=== PATIENT | male | born 1960 | race Caucasian/White ===

== ENCOUNTER 2020-07-04 10:35 | Emergency (ER) | payer SELFPAY ==
[2020-07-04] MEDS ORDERED: CEPHALEXIN 250 MG CAP ONE (11:35)
[2020-07-04] MEDS ORDERED: SMZ./TMP. 800/160 MG TABLET ONE (11:35)
[2020-07-04] MEDS ORDERED: LIDOCAINE 1% MPF 5 ML VIAL ONE (11:35)
[2020-07-04] MEDS ORDERED: HYDROCODONE/APAP 7.5/325 MG TAB ONE (11:36)
--- NOTE | 2020-07-04 12:37 | EDPHYS ---
Physician Documentation [facility] Name: Jonny Hunt Age: 60 yrs Sex: Male : 1960 Arrival Date: 07/04/2020 Time: 10:39 Bed 13 Private MD: ED Physician Palomo Bennett HPI: 07/04 11:31 This 60 yrs old Male presents to ER via Ambulatory with complaints of Insect kb Bite. 11:33 The patient presents with an abscess of the posterior aspect of right shoulder. kb Description: erythematous, fluctuant, hot, swollen. Onset: The symptoms/episode began/occurred 4 day(s) ago. Possible cause(s): unknown. Associated signs and symptoms: Pertinent positives: erythema, swelling, Pertinent negatives: fever. Modifying factors: the symptoms are alleviated by nothing, the symptoms are aggravated by walking, pressure, touching. Severity of symptoms: At their worst the symptoms were moderate, in the emergency department the symptoms are unchanged. The patient has not experienced similar symptoms in the past. The patient has not recently seen a physician. Historical: - Allergies: 10:54 No Known Allergies; ca1 - Home Meds: 10:54 None [Active]; ca1 - PMHx: 10:54 None; ca1 - PSHx: 10:54 None; ca1 - Immunization history:: Flu vaccine is not up to date. - Social history:: Smoking status: Patient reports the use of cigarette tobacco products, smokes one pack cigarettes per day. ROS: 11:34 Constitutional: Negative for fever, chills, and weight loss, Cardiovascular: Negative kb for chest pain, palpitations, and edema, Respiratory: Negative for shortness of breath, cough, wheezing, and pleuritic chest pain, Abdomen/GI: Negative for abdominal pain, nausea, vomiting, diarrhea, and constipation, MS/Extremity: Negative for injury and deformity, Neuro: Negative for headache, weakness, numbness, tingling, and seizure. 11:34 Skin: Positive for abscess. Exam: 11:33 Constitutional: This is a well developed, well nourished patient who is awake, alert, kb and in no acute distress. Head/Face: Normocephalic, atraumatic. MS/ Extremity: Pulses equal, no cyanosis. Neurovascular intact. Full, normal range of motion. Neuro: Awake and alert, GCS 15, oriented to person, place, time, and situation. Cranial nerves II-XII grossly intact. Motor strength 5/5 in all extremities. Sensory grossly intact. Cerebellar exam normal. Normal gait. 11:33 Skin: abscess, that is moderate sized, of the posterior aspect of right shoulder, with fluctuance, with induration, with surrounding cellulitis, that is moderate. Vital Signs: 10:52 BP 131 / 97; Pulse 78; Resp 16 S; Temp 97.3(TE); Pulse Ox 98% on R/A; Weight 97.52 kg ca1 (R); Height 6 ft. 1 in. (185.42 cm) (R); Pain 5/10; 10:52 Body Mass Index 28.37 (97.52 kg, 185.42 cm) ca1 Procedures: 16:31 I \T\ D: Incision and drainage was performed for an abscess of the right posterior aspect kb of right shoulder Prepped with Betadine, Anesthetized with 3 ml's 1% Lidocaine. Incised with #11 blade. Drained large amount purulent fluid. Cultures obtained. Abscess cavity explored. Packed with sterile gauze, Dressing: sterile 4x4 gauze, the patient tolerated the procedure well. MDM: 11:04 Patient medically screened. kb 11:32 Data reviewed: vital signs, nurses notes. Data interpreted: Pulse oximetry: on room air kb is 98 %. Interpretation: normal. Counseling: I had a detailed discussion with the patient and/or guardian regarding: the historical points, exam findings, and any diagnostic results supporting the discharge/admit diagnosis, the need for outpatient follow up, a family practitioner, to return to the emergency department if symptoms worsen or persist or if there are any questions or concerns that arise at home. 07/04 12:37 Order name: Wound Culture kb 07/04 11:11 Order name: I\T\D Setup; Complete Time: 11:25 kb Administered Medications: 11:25 Drug: KeFLEX 500 mg Route: PO; iw 11:35 Follow up: Response: No adverse reaction iw 11:26 Drug: [place] (7.5 mg-325 mg) 1 tabs Route: PO; iw 11:36 Follow up: Response: No adverse reaction iw 11:26 Drug: Bactrim (160 mg-800 mg (DS) 1 tablet Route: PO; iw 11:36 Follow up: Response: No adverse reaction iw Disposition: 16:08 Co-signature as Attending Physician, Palomo Bennett MD. rn Disposition: 07/04/20 12:36 Discharged to Home. Impression: Cutaneous abscess of right upper limb. - Condition is Stable. - Discharge Instructions: Skin Abscess, [place], Incision and Drainage, Care After. - Prescriptions for Keflex 500 mg Oral Capsule - take 1 capsule by ORAL route every 8 hours for 10 days; 30 capsule. Bactrim DS 800- 160 mg Oral Tablet - take 1 tablet by ORAL route every 12 hours for 10 days; 20 tablet. - Medication Reconciliation Form, Thank You Letter, Antibiotic Education, Prescription Opioid Use form. - Follow up: Emergency Department; When: As needed; Reason: Worsening of condition. Follow up: Private Physician; When: 2 - 3 days; Reason: Recheck today's complaints, Continuance of care, Re-evaluation by your physician. Signatures: Dispatcher [employer] EDMS Antonella Thomas, EMY-C [employer]-Winb Ariadna Delgado, RN RN Palomo Lovelace MD MD rn Ackennedy, Scarlett RN RN ca1 Corrections: (The following items were deleted from the chart) 11:36 11:34 Skin: Positive for kb kb 13:09 12:36 07/04/2020 12:36 Discharged to Home. Impression: Cutaneous abscess of right upper iw limb. Condition is Stable. Forms are Medication Reconciliation Form, Thank You Letter, Antibiotic Education, Prescription Opioid Use. Follow up: Emergency Department; When: As needed; Reason: Worsening of condition. Follow up: Private Physician; When: 2 - 3 days; Reason: Recheck today's complaints, Continuance of care, Re-evaluation by your physician. kb
--- NOTE | 2020-07-04 12:37 | ER ---
Nurse's Notes [facility] Name: Jonny Hunt Age: 60 yrs Sex: Male : 1960 Arrival Date: 07/04/2020 Time: 10:39 Bed 13 Private MD: Diagnosis: Cutaneous abscess of right upper limb Presentation: 07/04 10:52 Chief complaint: Patient states: Insect bite on the R shoulder, red, swollen, pus in ca1 the middle. Coronavirus screen: Client denies travel out of the [place] in the last 14 days. At this time, the client does not indicate any symptoms associated with coronavirus-19. Ebola Screen: Patient negative for fever greater than or equal to 101.5 degrees Fahrenheit, and additional compatible Ebola Virus Disease symptoms Patient denies exposure to infectious person. Patient denies travel to an Ebola-affected area in the 21 days before illness onset. No symptoms or risks identified at this time. Initial Sepsis Screen: Does the patient meet any 2 criteria? No. Patient's initial sepsis screen is negative. Does the patient have a suspected source of infection? No. Patient's initial sepsis screen is negative. Risk Assessment: Do you want to hurt yourself or someone else? Patient reports no desire to harm self or others. Onset of symptoms was July 01, 2020. 10:52 Method Of Arrival: Ambulatory ca1 10:52 Acuity: AXEL 4 ca1 Triage Assessment: 11:00 General: Appears in no apparent distress. Behavior is calm, cooperative. iw Historical: - Allergies: 10:54 No Known Allergies; ca1 - Home Meds: 10:54 None [Active]; ca1 - PMHx: 10:54 None; ca1 - PSHx: 10:54 None; ca1 - Immunization history:: Flu vaccine is not up to date. - Social history:: Smoking status: Patient reports the use of cigarette tobacco products, smokes one pack cigarettes per day. Screenin:08 Abuse screen: Denies threats or abuse. Denies injuries from another. Nutritional iw screening: No deficits noted. Tuberculosis screening: No symptoms or risk factors identified. Fall Risk None identified. Assessment: 11:00 General: Appears in no apparent distress. Behavior is calm, cooperative. iw 11:00 Pain: Complains of pain in posterior aspect of right shoulder. Neuro: Level of iw Consciousness is awake, alert, obeys commands, Oriented to person, place, time, situation, Moves all extremities. Cardiovascular: Patient's skin is warm and dry. Respiratory: Respiratory effort is even, unlabored, Respiratory pattern is regular, symmetrical. Derm: Skin is intact, Skin is pink, warm \T\ dry. Abscess located on posterior aspect of right shoulder is half dollar sized. Musculoskeletal: Range of motion: intact in all extremities. Vital Signs: 10:52 BP 131 / 97; Pulse 78; Resp 16 S; Temp 97.3(TE); Pulse Ox 98% on R/A; Weight 97.52 kg ca1 (R); Height 6 ft. 1 in. (185.42 cm) (R); Pain 5/10; 10:52 Body Mass Index 28.37 (97.52 kg, 185.42 cm) ca1 ED Course: 10:39 Patient arrived in ED. ds1 10:54 Triage completed. ca1 10:54 Arm band placed on right wrist. ca1 11:00 Patient has correct armband on for positive identification. iw 11:04 [facility]C [facility] kb 11:04 Palomo Bennett MD is Attending Physician. kb 11:09 Ariadna Delgado, NEDRA is Primary Nurse. iw 12:40 Assist provider with I \T\ D: of an abscess on right shoulder Set up I\T\D tray. Performed iw by Antonella GALLARDO Culture sent to lab. Wound packed. plain packing Dressing with 4X4s, tape Patient tolerated well. Patient did not have IV access during this emergency room visit. Administered Medications: 11:25 Drug: KeFLEX 500 mg Route: PO; iw 11:35 Follow up: Response: No adverse reaction iw 11:26 Drug: [place] (7.5 mg-325 mg) 1 tabs Route: PO; iw 11:36 Follow up: Response: No adverse reaction iw 11:26 Drug: Bactrim (160 mg-800 mg (DS) 1 tablet Route: PO; iw 11:36 Follow up: Response: No adverse reaction iw Outcome: 12:36 Discharge ordered by . kb 13:08 Discharged to home ambulatory. iw 13:08 Condition: good 13:08 Discharge instructions given to patient, Instructed on discharge instructions, follow up and referral plans. medication usage, Demonstrated understanding of instructions, follow-up care, medications, wound care, Prescriptions given X 2. 13:09 Patient left the ED. iw Addendum: 07/09/2020 07:13 Addendum: Culture Results: Positive wound culture. No further action required. Bacteria e b sensitive to prescribed antibiotic. Signatures: Antonella Thomas, [employer]DER [employer]KER-C [employer]DER [employer]KER-Ckb Eveline Jones ds1 Ariadna Delgado, NEDRA RN iw Arelis Montez Cheryl RN RN ca1 Corrections: (The following items were deleted from the chart) 07/05 07:49 07:47 General: Appears in no apparent distress. iw iw 07:51 03 13:08 Discharge instructions given to patient, Instructed on discharge iw instructions, follow up and referral plans. medication usage, Demonstrated understanding of instructions, follow-up care, medications, wound care, Prescriptions given X 3, iw
[2020-07-04 14:38] VITALS: BP 131/97; TEMP 97.3; O2SAT 98
== END 2020-07-04 13:09 | disposition home or self-care (01) ==
LOC: ER 10:35
PROC: 0J9D0ZZ Drainage of Right Upper Arm Subcutaneous Tissue and Fascia, Open Approach (ICD-10-PCS; principal; 2020-07-04)
DX: L02.413 Cutaneous abscess of right upper limb (principal); F17.210 Nicotine dependence, cigarettes, uncomplicated
CPT/HCPCS: 87070; 87077; 87186; 87205; 99284

== ENCOUNTER 2021-01-22 09:00 | Emergency (ER) | payer SELFPAY ==
[2021-01-22 09:20] LABS: Absolute Lymphocytes (CBC) 2.5 K/uL (0.7-4.9); Basophils % 0.7 % (0-1.3); Hematocrit 49.3 % (39.6-49.0); Lymphocytes % 22.1 % (15.3-44.8); MPV 8.1 fL (7.6-11.3); RBC Red Blood Cell Count 5.27 M/uL (4.33-5.43)
[2021-01-22] MEDS ORDERED: ONDANSETRON 4 MG/2 ML VIAL ONE (09:28)
[2021-01-22] MEDS ORDERED: KETOROLAC 30 MG/ML INJ ONE (09:28)
[2021-01-22] MEDS ORDERED: NA CHLORIDE 0.9% 1,000 ML ONE ×2 (09:28→09:59)
[2021-01-22] MEDS ORDERED: MORPHINE 4 MG/ML SYR ONE (09:28)
[2021-01-22 09:37] LABS: Albumin 3.9 g/dL (3.4-5.0); Bilirubin Direct 0.2 mg/dL (0-0.2); Bilirubin Total 0.8 mg/dL (0.2-1.0); Protein, Total 7.7 g/dL (6.4-8.2)
--- NOTE | 2021-01-22 09:52 | RAD REPORT ---
EXAM DESCRIPTION: CT - Stone Protocol - 01/22/2021 9:27 am CLINICAL HISTORY: Abdominal pain. TECHNIQUE: Computed axial tomography of the abdomen pelvis was obtained without oral or IV contrast. Lack of IV and oral contrast limits evaluation of solid organs, bowel, and vessels. Coronal reformat zeeshan images were obtained and reviewed. All CT scans are performed using dose optimization technique as appropriate and may include automated exposure control or mA/KV adjustment according to patient size. FINDINGS: Mild left hydronephrosis. 3.1 centimeter parapelvic cysts left kidney. 1 millimeter calcul us distal left ureter. A bladder calculus is not present. No right renal calculus. Small parapelvic c yst right kidney. Small to moderate hiatal hernia The liver, spleen, pancreas and adrenals appear grossly normal There is no evidence of diverticulitis. The appendix appears normal Infrarenal abdominal aortic aneurysm AP diameter 4.9 centimeters. Small right and moderate left inguinal hernias contain fat. Small umbilical hernia. Gastric diverticu lum IMPRESSION: 1 millimeter calculus distal left ureter with mild left hydronephrosis 4.9 centimeter infrarenal abdominal aortic aneurysm
[2021-01-22] MEDS ORDERED: PROMETHAZINE INJ 25 MG/ML AMP ONE ×2 (09:58→12:04)
[2021-01-22] MEDS ORDERED: HYDROMORPHONE HCL 1 MG/ML INJ ONE ×2 (09:59→12:04)
[2021-01-22] MEDS ORDERED: TAMSULOSIN 0.4 MG SR CAP ONE (10:16)
[2021-01-22] MEDS ORDERED: CEFTRIAXONE/SWI 1gm 1 GM/10 ML SYR ONE (10:25)
--- NOTE | 2021-01-22 10:46 | ER ---
Nurse's Notes [facility] Name: Jonny Hunt Age: 60 yrs Sex: Male : 1960 Arrival Date: 01/22/2021 Time: 09:01 Bed 6 Private MD: Diagnosis: Hydronephrosis with renal and ureteral calculous obstruction;Abdominal aortic aneurysm, without rupture-4.9 cm infrarenal;Essential (primary) hypertension;Tobacco abuse counseling;Tobacco use Presentation: 01/22 09:07 Chief complaint: Patient states: LLQ pain radiating to back. Woke pt up 2 hours ago. ch5 denies Hx of kidney stone. Coronavirus screen: Vaccine status: Patient reports receiving the 2nd dose of the covid vaccine. Client presents with at least one sign or symptom that may indicate coronavirus-19. Ebola Screen: Patient negative for fever greater than or equal to 101.5 degrees Fahrenheit, and additional compatible Ebola Virus Disease symptoms Patient denies exposure to infectious person. Patient denies travel to an Ebola-affected area in the 21 days before illness onset. Initial Sepsis Screen: Does the patient meet any 2 criteria? No. Patient's initial sepsis screen is negative. Does the patient have a suspected source of infection? No. Patient's initial sepsis screen is negative. Risk Assessment: Do you want to hurt yourself or someone else? Patient reports no desire to harm self or others. Onset of symptoms was January 22, 2021 at 07:00. 09:07 Method Of Arrival: EMS: [facility] 09:07 Acuity: AXEL 3 ch5 Triage Assessment: 09:11 General: Appears uncomfortable, Behavior is cooperative, restless. Pain: Complains of ch5 pain in abdomen. 09:12 Pain: Complains of pain in left lower quadrant Pain radiates to back. GI: Abdomen is Pt ch5 is actively vomiting Reports lower abdominal pain, nausea, vomiting. Derm: Skin is diaphoretic. Historical: - Allergies: 09:11 No Known Allergies; ch5 - Home Meds: 09:11 None [Active]; ch5 - PMHx: 09:11 None; ch5 - Immunization history:: Client reports receiving the 2nd dose of the Covid vaccine, September. - Social history:: Smoking status: Patient reports the use of cigarette tobacco products, smokes one pack cigarettes per day. - Family history:: not pertinent. Screenin:00 Abuse screen: Denies threats or abuse. Denies injuries from another. Nutritional 5 screening: No deficits noted. Tuberculosis screening: No symptoms or risk factors identified. Fall Risk None identified. Assessment: 09:13 Reassessment: No changes from previously documented assessment. GI: Reports lower ch5 abdominal pain, nausea, vomiting. Vital Signs: 09:00 BP 151 / 100; Pulse 61; Resp 20; Pulse Ox 98% ; Pain 10/10; ch5 09:07 BP 177 / 96; Pulse 61; Resp 18; Temp 97.5; Pulse Ox 94% on R/A; Weight 92.99 kg; Height ch5 6 ft. 1 in. (185.42 cm); Pain 10/10; 10:46 BP 135 / 75; Pulse 62; Resp 17 S; Pulse Ox 96% on R/A; jd3 11:16 BP 141 / 69; Pulse 53; Resp 16; Pulse Ox 94% on R/A; ch5 11:36 BP 146 / 75; Pulse 62; Resp 18; Pulse Ox 97% ; Pain 0/10; ch5 12:40 BP 141 / 69; Pulse 63; Resp 16; Pulse Ox 93% on R/A; Pain 0/10; ch5 09:07 Body Mass Index 27.05 (92.99 kg, 185.42 cm) 5 ED Course: 09:00 No provider procedures requiring assistance completed. 5 09:00 Bed in low position. Call light in reach. Side rails up X2. 5 09:01 Patient arrived in ED. am2 09:01 Bandar Miller MD is Attending Physician. [facility] 09:03 Inserted saline lock: 20 gauge in right antecubital area, using aseptic technique. es2 Blood collected. 09:07 Kev Banda, NEDRA is Primary Nurse. 5 09:10 Triage completed. 5 09:13 Arm band placed on right wrist. 5 09:26 CT Stone Protocol In Process Unspecified. EDMS 10:45 Pedro Luna MD is Referral Physician. radha 10:45 Dawson Freeman MD is Referral Physician. radha 12:39 intact. 5 Administered Medications: 09:12 Drug: NS 0.9% 1000 ml Route: IV; Rate: 1 bolus; Site: right antecubital; es2 11:30 Follow up: IV Status: Completed infusion ch5 09:12 Drug: morphine 4 mg Route: IVP; Site: right antecubital; es2 11:27 Follow up: Response: Pain is decreased ch5 09:12 Drug: Zofran (Ondansetron) 4 mg Route: IVP; Site: right antecubital; es2 11:27 Follow up: Response: Nausea is decreased ch5 09:12 Drug: Ketorolac 30 mg Route: IVP; Site: right antecubital; es2 11:27 Follow up: Response: Pain is decreased ch5 09:41 Drug: NS 0.9% 1000 ml Route: IV; Rate: 1 bolus; Site: right antecubital; ch5 11:29 Follow up: IV Status: Completed infusion ch5 09:41 Drug: Dilaudid (HYDROmorphone) 1 mg Route: IVP; Site: right antecubital; ch5 11:28 Follow up: Response: Pain is decreased ch5 09:42 Drug: Phenergan (promethazine) 12.5 mg Route: IVP; Site: right antecubital; ch5 11:28 Follow up: Response: Nausea is decreased ch5 09:56 Drug: Flomax (tamsulosin) 0.4 mg Route: PO; ch5 11:28 Follow up: Response: No adverse reaction ch5 10:06 Drug: Rocephin (cefTRIAXone) 1 grams Route: IV; Rate: per protocol; Site: right jd3 antecubital; 10:54 Not Given (Other Intervention Used): ToPROL XL (metoprolol SUCCINATE) 25 mg PO once jd3 10:55 Drug: Metoprolol TARTRATE 25 mg Route: PO; jd3 11:28 Follow up: Response: No adverse reaction ch5 11:45 Drug: Dilaudid (HYDROmorphone) 1 mg Route: IVP; Site: right antecubital; ch5 12:38 Follow up: Response: Pain is decreased ch5 11:45 Drug: Phenergan (promethazine) 12.5 mg Route: IVP; Site: right antecubital; ch5 12:38 Follow up: Response: Nausea is decreased ch5 Outcome: 10:45 Discharge ordered by . radha 12:39 Discharged to home ambulatory, with family. ch5 12:39 Condition: improved 12:39 Discharge instructions given to patient, Prescriptions given X 4. 13:17 Patient left the ED. ch5 Signatures: Dispatcher [employer] Bandar Blakely MD MD cha Moreno, Amanda am2 Juan C Vidal, RN RN jKve Alvarado RN RN ch5 Arelis Mark 2 Corrections: (The following items were deleted from the chart) 09:11 09:10 Inserted saline lock: 20 gauge in right antecubital area, using aseptic es2 technique. Blood collected. es2 11:45 11:36 Discharged to home ch5 ch5 11:45 11:36 Condition: improved ch5 ch5 11:45 11:36 Discharge instructions given to patient, family, Prescriptions given X 4, ch5 ch5
--- NOTE | 2021-01-22 10:46 | EDPHYS ---
Physician Documentation [facility] Name: Jonny Hunt Age: 60 yrs Sex: Male : 1960 Arrival Date: 01/22/2021 Time: 09:01 Bed 6 Private MD: ED Physician Bandar Miller HPI: 01/22 09:23 This 60 yrs old Male presents to ER via EMS with complaints of Abdominal Pain.radha 09:23 The patient presents with abdominal pain in the left upper quadrant, in the left lower radha quadrant. Onset: The symptoms/episode began/occurred this morning. The patient complains of pain in the left low back and left mid back. The pain radiates to the left low back and left mid back. Onset: The symptoms/episode began/occurred this morning. Modifying factors: The symptoms are alleviated by nothing. the symptoms are aggravated by nothing. Associated signs and symptoms: Pertinent positives: nausea, vomiting. The symptoms radiate to the left flank. Associated signs and symptoms: Pertinent positives: nausea, vomiting. The symptoms are described as crampy, sharp. Historical: - Allergies: 09:11 No Known Allergies; ch5 - Home Meds: 09:11 None [Active]; ch5 - PMHx: 09:11 None; ch5 - Immunization history:: Client reports receiving the 2nd dose of the Covid vaccine, September. - Social history:: Smoking status: Patient reports the use of cigarette tobacco products, smokes one pack cigarettes per day. - Family history:: not pertinent. ROS: 09:23 Constitutional: Negative for fever, chills, and weight loss, Eyes: Negative for injury, radha pain, redness, and discharge, ENT: Negative for injury, pain, and discharge, Neck: Negative for injury, pain, and swelling, Cardiovascular: Negative for chest pain, palpitations, and edema, Respiratory: Negative for shortness of breath, cough, wheezing, and pleuritic chest pain, : Negative for injury, bleeding, discharge, and swelling, MS/Extremity: Negative for injury and deformity, Skin: Negative for injury, rash, and discoloration, Neuro: Negative for headache, weakness, numbness, tingling, and seizure, Psych: Negative for depression, anxiety, suicide ideation, homicidal ideation, and hallucinations, Allergy/Immunology: Negative for hives, rash, and allergies, Endocrine: Negative for neck swelling, polydipsia, polyuria, polyphagia, and marked weight changes, Hematologic/Lymphatic: Negative for swollen nodes, abnormal bleeding, and unusual bruising. 09:23 Abdomen/GI: Positive for abdominal pain, of the anterior aspect of left lateral abdomen and posterior aspect of left lateral abdomen. Exam: 09:23 Constitutional: This is a well developed, well nourished patient who is awake, alert, radha and in no acute distress. Head/Face: Normocephalic, atraumatic. Eyes: Pupils equal round and reactive to light, extra-ocular motions intact. Lids and lashes normal. Conjunctiva and sclera are non-icteric and not injected. Cornea within normal limits. Periorbital areas with no swelling, redness, or edema. ENT: Nares patent. No nasal discharge, no septal abnormalities noted. Tympanic membranes are normal and external auditory canals are clear. Oropharynx with no redness, swelling, or masses, exudates, or evidence of obstruction, uvula midline. Mucous membranes moist. Neck: Trachea midline, no thyromegaly or masses palpated, and no cervical lymphadenopathy. Supple, full range of motion without nuchal rigidity, or vertebral point tenderness. No Meningismus. Chest/axilla: Normal chest wall appearance and motion. Nontender with no deformity. No lesions are appreciated. Cardiovascular: Regular rate and rhythm with a normal S1 and S2. No gallops, murmurs, or rubs. Normal PMI, no JVD. No pulse deficits. Respiratory: Lungs have equal breath sounds bilaterally, clear to auscultation and percussion. No rales, rhonchi or wheezes noted. No increased work of breathing, no retractions or nasal flaring. Male : Normal genitalia with no discharge or lesions. Skin: Warm, dry with normal turgor. Normal color with no rashes, no lesions, and no evidence of cellulitis. MS/ Extremity: Pulses equal, no cyanosis. Neurovascular intact. Full, normal range of motion. Neuro: Awake and alert, GCS 15, oriented to person, place, time, and situation. Cranial nerves II-XII grossly intact. Motor strength 5/5 in all extremities. Sensory grossly intact. Cerebellar exam normal. Normal gait. Psych: Awake, alert, with orientation to person, place and time. Behavior, mood, and affect are within normal limits. 09:23 Abdomen/GI: Inspection: abdomen appears normal, Bowel sounds: normal, Palpation: moderate abdominal tenderness, in the anterior aspect of left lateral abdomen, posterior aspect of left lateral abdomen, left upper quadrant and left lower quadrant, Liver: no appreciated palpable abnormalities, Hernia: not appreciated. Vital Signs: 09:00 BP 151 / 100; Pulse 61; Resp 20; Pulse Ox 98% ; Pain 10/10; ch5 09:07 BP 177 / 96; Pulse 61; Resp 18; Temp 97.5; Pulse Ox 94% on R/A; Weight 92.99 kg; Height ch5 6 ft. 1 in. (185.42 cm); Pain 10/10; 10:46 BP 135 / 75; Pulse 62; Resp 17 S; Pulse Ox 96% on R/A; jd3 11:16 BP 141 / 69; Pulse 53; Resp 16; Pulse Ox 94% on R/A; ch5 11:36 BP 146 / 75; Pulse 62; Resp 18; Pulse Ox 97% ; Pain 0/10; ch5 12:40 BP 141 / 69; Pulse 63; Resp 16; Pulse Ox 93% on R/A; Pain 0/10; ch5 09:07 Body Mass Index 27.05 (92.99 kg, 185.42 cm) 5 MDM: 09:01 Patient medically screened. [facility] 09:27 Differential diagnosis: nephrolithiasis, pyelonephritis, UTI, testicular torsion, radha diverticulitis, pancreatitis, diverticulitis, non-specific abd pain, pancreatitis, Pyelonephritis, Ureterolithiasis, urinary tract infection. Data reviewed: vital signs, nurses notes, lab test result(s), radiologic studies, CT scan. Data interpreted: color television console monitor: rate is 61 beats/min, rhythm is regular, Pulse oximetry: on room air is 94 %. Test interpretation: by ED physician or midlevel provider:. Counseling: I had a detailed discussion with the patient and/or guardian regarding: the historical points, exam findings, and any diagnostic results supporting the discharge/admit diagnosis, lab results. 01/22 09:05 Order name: Basic Metabolic Panel; Complete Time: 09:53 radha 01/22 09:05 Order name: CBC with Diff; Complete Time: :53 radha 01/22 09:05 Order name: Hepatic Function; Complete Time: 09:53 [facility] 01/22 09:05 Order name: Lipase; Complete Time: : [facility] 01/22 09:05 Order name: CT Stone Protocol; Complete Time: [facility] 01/22 09:05 Order name: IV Saline Lock; Complete Time: : [facility] 01/22 09:05 Order name: Labs collected and sent; Complete Time: 09:13 [facility] Administered Medications: 09:12 Drug: NS 0.9% 1000 ml Route: IV; Rate: 1 bolus; Site: right antecubital; es2 11:30 Follow up: IV Status: Completed infusion ch5 09:12 Drug: morphine 4 mg Route: IVP; Site: right antecubital; es2 11:27 Follow up: Response: Pain is decreased ch5 09:12 Drug: Zofran (Ondansetron) 4 mg Route: IVP; Site: right antecubital; es2 11:27 Follow up: Response: Nausea is decreased ch5 09:12 Drug: Ketorolac 30 mg Route: IVP; Site: right antecubital; es2 11:27 Follow up: Response: Pain is decreased ch5 09:41 Drug: NS 0.9% 1000 ml Route: IV; Rate: 1 bolus; Site: right antecubital; ch5 11:29 Follow up: IV Status: Completed infusion ch5 09:41 Drug: Dilaudid (HYDROmorphone) 1 mg Route: IVP; Site: right antecubital; ch5 11:28 Follow up: Response: Pain is decreased ch5 09:42 Drug: Phenergan (promethazine) 12.5 mg Route: IVP; Site: right antecubital; ch5 11:28 Follow up: Response: Nausea is decreased ch5 09:56 Drug: Flomax (tamsulosin) 0.4 mg Route: PO; ch5 11:28 Follow up: Response: No adverse reaction ch5 10:06 Drug: Rocephin (cefTRIAXone) 1 grams Route: IV; Rate: per protocol; Site: right jd3 antecubital; 10:54 Not Given (Other Intervention Used): ToPROL XL (metoprolol SUCCINATE) 25 mg PO once jd3 10:55 Drug: Metoprolol TARTRATE 25 mg Route: PO; jd3 11:28 Follow up: Response: No adverse reaction ch5 11:45 Drug: Dilaudid (HYDROmorphone) 1 mg Route: IVP; Site: right antecubital; ch5 12:38 Follow up: Response: Pain is decreased ch5 11:45 Drug: Phenergan (promethazine) 12.5 mg Route: IVP; Site: right antecubital; ch5 12:38 Follow up: Response: Nausea is decreased ch5 Disposition Summary: 01/22/21 10:45 Discharge Ordered Location: Home radha Problem: new radha Symptoms: have improved radha Condition: Stable radha Diagnosis - Hydronephrosis with renal and ureteral calculous obstruction radha - Abdominal aortic aneurysm, without rupture - 4.9 cm infrarenal radha - Essential (primary) hypertension radha - Tobacco abuse counseling radha - Tobacco use radha Followup: radha - With: Private Physician - When: 2 - 3 days - Reason: Recheck today's complaints, Continuance of care, Re-evaluation by your physician Followup: radha - With: - When: 2 - 3 days - Reason: Recheck today's complaints, Re-evaluation by your physician Followup: radha - With: - When: 2 - 3 days - Reason: Recheck today's complaints, Re-evaluation by your physician Discharge Instructions: - Discharge Summary Sheet radha - Abdominal Aortic Aneurysm radha - Kidney Stones radha - Kidney Stones, [id number] radha - Hydronephrosis radha - Hypertension, Adult radha - Hypertension, Adult, [id number] [facility] Forms: - Medication Reconciliation Form radha - Thank You Letter radha - Antibiotic Education radha - Prescription Opioid Use [facility] Prescriptions: - tamsulosin 0.4 mg Oral capsule - take 1 capsule by ORAL route once daily 1/2 hour following the same meal each [facility] day; 30 capsule; Refills: 0, Product Selection Permitted - Zofran 4 mg Oral Tablet - take 1 tablet by ORAL route every 12 hours As needed; 20 tablet; Refills: 0, [facility] Product Selection Permitted - Cipro 500 mg Oral Tablet - take 1 tablet by ORAL route every 12 hours for 7 days; 14 tablet; Refills: 0, [facility] Product Selection Permitted - Toprol XL 25 mg Oral Tablet - take 1 tablet by ORAL route once daily; 20 tablet; Refills: 0, Product [facility] Selection Permitted - Tramadol 50 mg Oral Tablet - take 2 tablet by ORAL route every 8 hours as needed; 26 tablet; Refills: 0, [facility] Product Selection Permitted Signatures: Bandar Finch MD MD cha Davies, Jonathon, RN RN jd3 Kev Banda RN RN ch5 Arelis Mark
[2021-01-22] MEDS ORDERED: METOPROLOL TAR 25 MG TAB ONE (11:14)
[2021-01-22 13:27] VITALS: TEMP 97.5
[2021-01-22 13:32] VITALS: BP 141/69; O2SAT 93
== END 2021-01-22 13:17 | disposition home or self-care (01) ==
LOC: ER 09:00
DX: N13.2 Hydronephrosis with renal and ureteral calculous obstruction (principal); I71.4 Abdominal aortic aneurysm, without rupture; I10 Essential (primary) hypertension; Z71.6 Tobacco abuse counseling; F17.210 Nicotine dependence, cigarettes, uncomplicated
CPT/HCPCS: 36415; 74176; 76377; 80048; 80076; 83690; 85025; 96361; 96374; 96375; 99284; J0696; J1170; J2405; J2550; J7030